=== PATIENT | female | born 1975 | race American Indian/Alaskan Native ===

== ENCOUNTER 2021-08-22 11:57 | Outpatient (CLI) | payer OTHER ==
--- NOTE | 2021-08-22 14:03 | XRay Report ---
PELVIS ONE VIEW BILATERAL HIPS WITH PELVIS 3 VIEWS INDICATION: PAIN IN HIPS. COMPARISON: None. IMPRESSION: Normal bone mineralization. There is no evidence for pelvic fracture, bone lesion or chaparrita stasis. The SI joints are unremarkable. There is normal articulation at both hips. No evidence for f racture, degenerative changes or osteonecrosis. Signer Name: Valentin Price Jr, MD Signed: 08/22/2021 1:59 PM Workstation Name: [id number]
== END 2021-08-22 11:58 | disposition home or self-care (01) ==
LOC: XRAY 11:57
PROVIDERS: ATTEND Internal Medicine
DX: M25.559 Pain in unspecified hip (principal)
CPT/HCPCS: 72170; 73521